=== PATIENT | male | born 1970 | race Caucasian/White ===

== ENCOUNTER 2019-01-03 06:27 | Emergency (ER) | payer MEDICAID ==
[~2019-01-03] VITALS: Ht 177.8 cm; Wt 73.0 kg
[2019-01-03] MEDS ORDERED: IBUPROFEN 600MG TABLET PO ONE (10:30)
[2019-01-03] MEDS ORDERED: ACETAMINOPHEN 325MG TABLET PO ONE (10:30)
[2019-01-03 10:49] LABS: HEMATOCRIT. 45.4 % (42.0-52.0); HEMOGLOBIN. 15.3 g/dL (14.0-18.0); MEAN CORPUSCULAR HEMOGLOBIN 29.4 pg (28.0-32.0); MEAN CORPUSCULAR VOLUME 87.3 fL (80.0-94.0); PLATELET 149 x1000/uL (130-400); RED CELL DISTRIBUTION WIDTH 14.2 % (11.6-14.6)
[2019-01-03 10:55] LABS: CHLORIDE 99 mEq/L (98-107)
[2019-01-03 11:23] LABS: PLATELET ESTIMATE NORMAL
[2019-01-03 12:30] VITALS: BP 113/77
== END 2019-01-03 12:55 | disposition home or self-care (01) ==
LOC: ER 06:27
DX: B34.9 Viral infection, unspecified (principal); M19.90 Unspecified osteoarthritis, unspecified site; Z88.0 Allergy status to penicillin
CPT/HCPCS: 36415; 71045; 87804; 99284

== ENCOUNTER 2019-12-21 08:14 | Emergency (ER) | payer MEDICAID ==
[~2019-12-21] VITALS: Ht 172.7 cm; Wt 81.0 kg
[2019-12-21] MEDS ORDERED: SODIUM CHLORIDE 0.9% 1,000 ML IV ONE (08:44)
[2019-12-21] MEDS ORDERED: LORAZEPAM 2MG/ML CPJ IV ONE (08:45)
[2019-12-21 09:21] LABS: BASOPHILS % 0.6 % (0.0-2.0); EOSINOPHILS % 0.3 % (0.0-5.0); HEMATOCRIT. 39.3 % (42.0-52.0); HEMOGLOBIN. 13.5 g/dL (14.0-18.0); MEAN CORPUSCULAR HEMOGLOBIN 29.4 pg (28.0-32.0); MEAN CORPUSCULAR VOLUME 85.6 fL (80.0-94.0); MEAN PLATELET VOLUME 7.4 fl (7.4-10.4); MONOCYTES % 7.9 % (2.0-8.0); NEUTROPHILS % 69.2 % (40.0-76.0); PLATELET 195 x1000/uL (130-400); RED BLOOD CELL COUNT 4.59 mill/uL (4.7-6.1); RED CELL DISTRIBUTION WIDTH 14.1 % (11.6-14.6)
[2019-12-21 09:24] LABS: CHLORIDE 103 mEq/L (98-107)
[2019-12-21 18:27] LABS: *AMPHETAMINES SCREEN URINE PRESUMTIVE POSITIVE (NEGATIVE); *BENZODIAZEPINES SCREEN URINE NEGATIVE (NEGATIVE)
[2019-12-21 18:29] LABS: *COCAINE SCREEN URINE PRESUMTIVE POSITIVE (NEGATIVE); CANNABINOID URINE SCREEN PRESUMTIVE POSITIVE (NEGATIVE); METHADONE URINE SCREEN NEGATIVE (NEGATIVE); PHENCYCLIDINE URINE SCREEN NEGATIVE (NEGATIVE)
[2019-12-21] MEDS ORDERED: HALOPERIDOL LACTATE 5MG/ML VIAL IM ONE (19:15)
[2019-12-21] MEDS ORDERED: DIPHENHYDRAMINE 50MG/ML VIAL IM ONE (19:15)
[2019-12-21 21:10] LABS: *BARBITURATES SCREEN URINE NEGATIVE (NEGATIVE)
[2019-12-22 07:30] VITALS: BP 105/72
[2019-12-23 20:34] LABS: OPIATES URINE SCREEN NEGATIVE (NEGATIVE)
== END 2019-12-22 09:10 | disposition home or self-care (01) ==
LOC: ER 08:24
DX: F15.10 Other stimulant abuse, uncomplicated (principal); Z88.0 Allergy status to penicillin
CPT/HCPCS: 36415; 71045; 80053; 80305; 85025; 93005; 96372; 96374; 99285; J1200; J1630; J2060; J7030

== ENCOUNTER 2020-01-15 08:21 | Emergency (ER) | payer MEDICAID ==
[~2020-01-15] VITALS: Ht 175.3 cm; Wt 77.0 kg
[2020-01-15 09:14] VITALS: BP 111/80
== END 2020-01-15 09:18 | disposition home or self-care (01) ==
LOC: ER 08:21
DX: F10.20 Alcohol dependence, uncomplicated (principal); F15.180 Other stimulant abuse with stimulant-induced anxiety disorder; J18.9 Pneumonia, unspecified organism; R03.0 Elevated blood-pressure reading, without diagnosis of hypertension; Y90.9 Presence of alcohol in blood, level not specified
CPT/HCPCS: 71045; 93005; 99283

== ENCOUNTER 2020-12-04 17:58 | Emergency (ER) | payer MEDICAID ==
[~2020-12-04] VITALS: Ht 167.6 cm; Wt 90.0 kg
[2020-12-04] MEDS ORDERED: OLANZAPINE 10 MG/VIAL IM STA (18:31)
[2020-12-04] MEDS ORDERED: LORAZEPAM 2MG/ML CPJ IM STA (18:31)
[2020-12-04] MEDS ORDERED: SODIUM CHLORIDE 0.9% 1,000 ML IV ONE (18:45)
[2020-12-04 19:57] LABS: BASOPHILS % 0.7 % (0.0-2.0); EOSINOPHILS % 0.8 % (0.0-5.0); HEMATOCRIT. 38.9 % (42.0-52.0); HEMOGLOBIN. 12.7 g/dL (14.0-18.0); LYMPHOCYTES % 29.5 % (20.0-50.0); MEAN CORPUSCULAR HEMOGLOBIN 28.2 pg (28.0-32.0); MEAN PLATELET VOLUME 7.5 fl (7.4-10.4); MONOCYTES % 9.9 % (2.0-8.0); NEUTROPHILS % 59.1 % (40.0-76.0); PLATELET 245 x1000/uL (130-400); RED BLOOD CELL COUNT 4.52 mill/uL (4.7-6.1); RED CELL DISTRIBUTION WIDTH 13.1 % (11.6-14.6)
[2020-12-04 20:03] LABS: CLARITY URINE CLEAR (CLEAR); COLOR URINE ORANGE (YELLOW); KETONES URINE TRACE (NEGATIVE); LEUKOCYTE ESTERASE URINE NEGATIVE (NEGATIVE); NITRITE URINE NEGATIVE (NEGATIVE); OCCULT BLOOD URINE NEGATIVE (NEGATIVE); PH URINE 5.5 (4.5-8.0); PROTEIN URINE NEGATIVE (NEGATIVE); SPECIFIC GRAVITY URINE 1.027 (1.005-1.030)
[2020-12-04 20:10] LABS: CHLORIDE 103 mEq/L (98-107)
[2020-12-04 20:18] LABS: ETHANOL BLOOD < 10 mg/dL
[2020-12-04 20:20] LABS: *AMPHETAMINES SCREEN URINE PRESUMTIVE POSITIVE (NEGATIVE); *BENZODIAZEPINES SCREEN URINE NEGATIVE (NEGATIVE); *COCAINE SCREEN URINE NEGATIVE (NEGATIVE); CANNABINOID URINE SCREEN NEGATIVE (NEGATIVE); METHADONE URINE SCREEN NEGATIVE (NEGATIVE); OPIATES URINE SCREEN NEGATIVE (NEGATIVE); PHENCYCLIDINE URINE SCREEN NEGATIVE (NEGATIVE)
[2020-12-04 20:21] LABS: *BARBITURATES SCREEN URINE NEGATIVE (NEGATIVE)
[2020-12-07 07:11] VITALS: BP 108/73
== END 2020-12-07 10:31 | disposition home or self-care (01) ==
LOC: ER 17:58
DX: R45.851 Suicidal ideations (principal); R45.850 Homicidal ideations; F29 Unspecified psychosis not due to a substance or known physiological condition; T43.625A Adverse effect of amphetamines, initial encounter; Y92.89 Other specified places as the place of occurrence of the external cause; Z98.890 Other specified postprocedural states; Z88.0 Allergy status to penicillin
CPT/HCPCS: 36415; 80053; 80305; 80307; 80320; 80329; 81003; 85025; 93005; 96360; 96361; 96372; 99285; J2060; J3490; J7030; G0480

== ENCOUNTER 2022-04-07 12:51 | Emergency (ER) | payer MEDICAID ==
[~2022-04-07] VITALS: Ht 167.6 cm; Wt 91.0 kg
[2022-04-07] MEDS ORDERED: KETOROLAC 30MG/ML VIAL IM STA (13:02)
[2022-04-07 13:36] VITALS: BP 108/72
[2022-04-07 13:38] LABS: BASOPHILS % 0.5 % (0.0-2.0); EOSINOPHILS % 1.4 % (0.0-5.0); HEMATOCRIT. 40.6 % (42.0-52.0); HEMOGLOBIN. 14.2 g/dL (14.0-18.0); LYMPHOCYTES % 25.9 % (20.0-50.0); MEAN CORPUSCULAR HEMOGLOBIN 29.5 pg (28.0-32.0); MEAN CORPUSCULAR VOLUME 84.7 fL (80.0-94.0); MEAN PLATELET VOLUME 7.4 fl (7.4-10.4); MONOCYTES % 6.9 % (2.0-8.0); NEUTROPHILS % 65.3 % (40.0-76.0); PLATELET 229 x1000/uL (130-400); RED BLOOD CELL COUNT 4.79 mill/uL (4.7-6.1); RED CELL DISTRIBUTION WIDTH 13.9 % (11.6-14.6)
[2022-04-07 13:57] LABS: CHLORIDE 108 mEq/L (98-107)
[2022-04-07 14:28] LABS: CLARITY URINE CLEAR (CLEAR); COLOR URINE YELLOW (YELLOW); KETONES URINE TRACE (NEGATIVE); LEUKOCYTE ESTERASE URINE NEGATIVE (NEGATIVE); NITRITE URINE NEGATIVE (NEGATIVE); OCCULT BLOOD URINE NEGATIVE (NEGATIVE); PROTEIN URINE 1+ (NEGATIVE); SPECIFIC GRAVITY URINE 1.028 (1.005-1.030); UROBILINOGEN URINE 0.2 E.U./dL (0.2-1.0)
[2022-04-07] MEDS ORDERED: IBUP-2030 MT ×3 (15:00→16:26)
[2022-04-07] MEDS ORDERED: SULF1TAB48 MT ×3 (15:00→16:26)
[2022-04-07] MEDS ORDERED: HYDROCODONE/ACETAMINOPHEN 5/325MG TABLET PO ONE (15:15)
== END 2022-04-07 16:51 | disposition home or self-care (01) ==
LOC: ER 13:12
DX: K57.90 Diverticulosis of intestine, part unspecified, without perforation or abscess without bleeding (principal); N39.0 Urinary tract infection, site not specified
CPT/HCPCS: 36415; 71045; 74176; 80053; 81003; 85025; 96372; 99285; J1885

== ENCOUNTER 2023-05-07 21:59 | Emergency (ER) | payer MEDICAID ==
[~2023-05-07] VITALS: Ht 172.7 cm; Wt 91.0 kg
[~2023-05-07 21:59] MED LIST: IBUP-2030 MT; SULF1TAB48 MT
[2023-05-07 22:08] VITALS: BP 133/82; PULSE 76; RESP 16; TEMP 98.2; O2SAT 98
== END 2023-05-08 03:31 | disposition left against medical advice (07) ==
LOC: ER 22:22
DX: Z53.21 Procedure and treatment not carried out due to patient leaving prior to being seen by health care provider (principal)
CPT/HCPCS: 99281

== ENCOUNTER 2023-06-20 19:09 | Emergency (ER) | payer MEDICAID, OTHER ==
[~2023-06-20] VITALS: Ht 167.6 cm; Wt 90.0 kg
[2023-06-20 19:47] VITALS: O2SAT 97
[2023-06-20] MEDS ORDERED: METH-653 MT (20:35)
[2023-06-20] MEDS ORDERED: KETOROLAC 60MG/2ML VIAL IM ONE (20:45)
[2023-06-20] MEDS ORDERED: METHOCARBAMOL 500MG TABLET PO ONE (20:45)
[2023-06-20 21:30] VITALS: BP 144/100; PULSE 110; RESP 18; TEMP 98.9
== END 2023-06-20 21:35 | disposition home or self-care (01) ==
LOC: ER 19:09
DX: M54.50 Low back pain, unspecified (principal); I10 Essential (primary) hypertension; Z88.0 Allergy status to penicillin
CPT/HCPCS: 99283; 96372; J1885